=== PATIENT | female | born 1935 | race Caucasian/White ===

== ENCOUNTER → 2024-01-28 14:33 | Outpatient (REF) | payer MEDICARE, OTHER, SELFPAY | LOC: HWRCS 14:33 | PROVIDERS: ATTENDING PHYSICIAN Nuclear Medicine Nuclear Cardiology; FAMILY PHYSICIAN Family Medicine | DX: I50.32 Chronic diastolic (congestive) heart failure (principal); I48.0 Paroxysmal atrial fibrillation | CPT/HCPCS: 93306 ==

== ENCOUNTER 2024-01-30 17:03 | Inpatient (IN) | payer MEDICARE, OTHER, SELFPAY ==
[2024-01-30] VITALS (11 sets, daily range): BP systolic 134–165; BP diastolic 56–89; BMI 25.5; BMI 26.5
[2024-01-30 11:54] LABS: % Basophils 0.3 % (0-2); % Eosinophils 0.1 % (0-6); % Immature Granulocytes 0.7 % (0-0.5); % Lymphocytes 2.1 % (20.5-51.1); % Neutrophils 90.8 % (42.2-75.2); Absolute Immature Granulocytes 0.1 10^3/uL (0-0.05); Absolute Lymphocytes 0.3 10^3/uL (1.2-3.4); Absolute Monocytes 0.8 10^3/uL (0.1-0.6); Absolute Neutrophils 12.4 10^3/uL (1.4-6.5); Hematocrit 37.9 % (37.0-47.0); Hemoglobin 12.6 g/dL (12.0-16.0); Mean Corp Hgb Conc. 33.2 g/dL (33.0-37.0); Mean Corpuscular Hgb 28.2 pg (27.0-31.0); Mean Corpuscular Volume 84.8 fL (81.0-99.0); Mean Platelet Volume 11.6 fL (7.4-10.4); Nucleated Red Blood Cells % 0 %; Platelet Count 180 10^3/uL (130-400); Red Blood Cell Count 4.47 10^6/uL (4.20-5.40); Red Cell Dist. Width 15.2 % (11.5-14.5); White Blood Cell Count 13.6 10^3/uL (4.8-10.8)
[2024-01-30 12:04] LABS: Lactic Acid 1.3 mmol/L (0.7-2.0)
[2024-01-30 12:05] LABS: ALT (SGPT) 22 U/L (0-35); AST (SGOT) 27 U/L (14-36); Albumin 4.1 g/dl (3.5-5.0); Alkaline Phosphatase 138 U/L (38-126); Blood Urea Nitrogen 22 mg/dl (7-17); Calcium 8.9 mg/dl (8.4-10.2); Carbon Dioxide 32 mmol/L (22-30); Chloride 98 mmol/L (98-107); Estimated Creatinine Clearance 46 ml/min; Glucose 140 mg/dl (70-99); Potassium 3.8 mmol/L (3.5-5.1); Sodium 141 mmol/L (135-145); Total Bilirubin 1.7 mg/dl (0.2-1.3); Total Protein 6.6 g/dl (6.3-8.2); eGFR > 60.00
[2024-01-30 12:06] LABS: COVID-19 Antigen Negative (Negative)
--- NOTE | 2024-01-30 12:43 | ED.GENMED ---
History of Present Illness
General
Chief Complaint: Fever
Source: patient
Exam Limitations: none
Time Seen by Provider: 01/30/24 12:41
Nursing documentation reviewed up to this point in time: agreed with
History of Present Illness
History of Present Illness:
88-year-old male with history of chronic back pain, CVA, asthma, A-fib on Coumadin, CHF, HTN, TAVR 08/2017GERD, hiatal hernia, anemia, anxiety/depression presents from [facility] for cough and fever.
She also has a wound on the left lower leg from scratching and she was started on doxycycline 100 mg twice daily last night. She has had a total of 1 dose
She states she had a fever of 103.5 at 930 this morning. She took 2 extra strength Tylenol. She denies chills. She denies N/V/D/C. She denies chest pain or abdominal pain.
Past History
Past History
ED Past Medical History: Arrthythmia, Asthma, GERD, HTN, Hypercholesterolemia, Valvular disease and Other
ED Past Surgical History: Cardiac, Gynecological, Orthopedic and Tonsilectomy
Social History
Tobacco: Non-smoker
Alcohol: None
Drug: None
Personal:
Living: alone
Review of Systems
Review of Systems
Allergies reviewed?: Yes
All Other Systems: ROS reviewed and negative except as documented in HPI and ROS
Constitutional: Reports fever; Denies chills
Respiratory: Reports cough and trouble breathing
Cardiac: Denies chest pain
ABD/GI: Denies abdominal pain, nausea, vomiting, diarrhea or constipated
: Denies dysuria, frequency, difficulty voiding or urgency
Musculoskeletal: Reports edema (left leg swelling)
Skin: Reports other (wounds left lower leg with redness and swelling)
Neurological: Reports no symptoms
Phy Exam
Physical Exam
Physical Exam:
GENERAL: No acute distress. A&Ox3.
CONSTITUTIONAL: Afebrile.
EYES: clear, conjunctivae normal
ENMT: dry mucus membranes, Pharynx nl
RESPIRATORY: Regular respirations, nonlabored, lungs with crackles right base. O2 92% on 2L NC O2
CARDIOVASCULAR: Regular rate and rhythm, no murmurs, no rubs.
GI: Soft, nontender, normal BS
MUSCULOSKELETAL: Moves with ease. Well perfused.
SKIN: Warm, dry, pale. LLE +1 larger than RLE. LLE with wound on dodd and posterior lower leg w surrounding redness, very tender. Distal N/V intact
PSYCH: Normal mood and affect. Well kept, interactive and appropriate
NEUROLOGIC: Awake, alert and oriented. No focal neurological deficits
Course
Orders/Labs/Results
Orders:
Orders
01/30/24 11:32
CXR2 [CR Chest - 2 Views ] Urgent
Comment:
Reason For Exam: cough/fever
01/30/24 11:34
COVID-19 Antigen Urgent
Source: Nasal Swab
Complete Blood Count/With Diff Urgent
Comprehensive Metabolic Panel Urgent
Digoxin Urgent
Comment: ADDON
Lactate Level [Lactic Acid] Urgent
NT-proBNP Urgent
Comment: ADDON SERUM
Influenza A+B Rapid Molecular Urgent
GIANNA Source: Nasal Swab
Specimen Description:
01/30/24 13:28
US Periph Venous LOWER Ext LT Urgent
Comment:
Reason For Exam: swelling, wound, cellulitis
01/30/24 13:39
0.9% Sodium Chloride 500 ml [Nss] 500 ml IV BOLUS
Aztreonam [Azactam] 1,000 mg IV NOW STA
01/30/24 13:55
Vancomycin [Vancocin] 1,500 mg 0.9% Sodium Chloride [Nss] 20 ml 0.9% Sodium Chloride 250 ml [Nss] 250 ml IV NOW
01/30/24 14:16
Blood Culture Q30M
GIANNA Source: Blood/Venous
Specimen Description:
Blood Culture Q30M
GIANNA Source: Blood/Venous
Specimen Description:
01/30/24 Dinner
Cholesterol Lowering
At Your Request: Limited Participation
Fluid Restriction: 1440 mL/day (48 oz)
Cholesterol Lowering: Sodium, 2 Gram
01/30/24 15:56
Acetaminophen [Tylenol] 1,000 mg .ROUTE .STK-MED ONE
01/30/24 15:58
Acetaminophen [Tylenol] 1,000 mg PO NOW STA
01/30/24 16:24
Add On- LAB Urgent
Tests Added?: bnp, digoxin level
01/30/24 16:39
PT/INR [Prothrombin Time] Urgent
01/30/24 16:48
Admit/Transfer Patient As Directed
Co-Sign Provider:
Level of Care: Inpatient admission
Assign to:: Telemetry
Physician / Group: karyna chandler
Diagnosis: hypoxia 2/2 rll pna, left leg celluitis open wounds
Reason for Telemetry: Arrhythmia
Date to Stop Telemetry: 02/02/24
Time to Stop Telemetry: 11:00
Reason for Hospitalization: hypoxia 2/2 rll pna, left leg celluitis open wounds
Expected length of stay greater than two midnights?: Yes
ELOS- Estimated Length of Stay in days: 5
I certify the patient meets the requirements for IP care: Yes
Code Status As Directed
Resuscitation Status: Do not resuscitate
Reached after discussion with pt or family/Healthcare POA: Yes
Based on pt advanced directive or healthcare POA form: Yes
Decision communicated with: per pt
01/30/24 16:49
DNR Bracelet Application ONCE
01/30/24 16:53
PRN Pain Medication Management As Directed
May give lesser potent ordered pain med per pt: Yes
preference::
Protocol:: Medication orders for pain may be administered in a
manner that supports deferring to patient preference
when the pt is:
- Requesting an ordered lesser potent pain medication.
Least to most potent pain medications are defined
as: acetaminophen < NSAID < tramadol < opioids
(morphine, oxycodone, hydromorphone).
- Requesting a lesser dose of the same medication IF
ORDERED.
- Requesting a less intrusive route of administration
if both routes are prescribed by the provider (PO <
IV).
01/30/24 19:48
Acetaminophen [Tylenol] 650 mg PO Q4HPRN PRN
Bisacodyl [Dulcolax] 10 mg RECTAL [id number] PRN
Calcium Carbonate [Oscal Lambert 500] 1,000 mg PO Q4HPRN PRN
Docusate W/Senna [Senokot-S] 1 tablet PO BIDPRN PRN
HydrOXYZINE [Atarax] 25 mg PO TIDPRN PRN
Polyethylene Glycol Powder [Miralax] 17 grams PO DAILYPRN PRN
Trazodone [Desyrel] 25 mg PO Q4HPRN PRN
VANCOMYCIN Pharmacy to Dose [VANCOCIN Pharmacy to Dose] 1 each Pharmacy To Prepare [Call Pharmacy To Prepare] 0 ml IV PER PROTOCOL
01/30/24 19:48
WOUND/OSTOMY CONSULT Routine
Reason for Consult: lle cellulitis /wounds open
VTE Contraindication Routine
VTE Mechanical Device Contraindication: Medical Contraindication
Pharmocologic Contraindication: Medical Contraindication
Comment: pt on coumadin
Activity As Directed
Activity Level: With Assistance
Intake/ Output As Directed
Frequency: Per unit guidelines
Vital Signs As Directed
Frequency: Per unit guidelines
Weight As Directed
Frequency: Daily
Incentive Spirometry [Rx Incentive Spirometry] [RESP] Routine
Frequency: q1h while awake
O2 Therapy [RESP] Routine
Nasal Cannula Liter Flow: 2 LPM
Titrate/Wean O2 to maintain O2 sat greater than (%): 92
Pulse Ox/spot Check [RESP] Routine
Quantity: 1
Ot Eval And Treat Routine
Pt Eval And Treat Routine
Activity Level: With Assistance
01/30/24 20:00
Metoprolol Xl [Toprol Xl] 75 mg PO BID
calcium carbonate 500 mg PO BID
01/30/24 22:00
Atorvastatin [Lipitor] 10 mg PO HS
01/31/24 00:00
Aztreonam [Azactam] 1,000 mg IV Q8H
01/31/24 06:00
Complete Blood Count/With Diff IN AM
Comprehensive Metabolic Panel IN AM
PT/INR [Prothrombin Time] IN AM
01/31/24 08:00
Ferrous Sulfate [Feosol] 325 mg PO DAILY
Lisinopril [Zestril] 5 mg PO DAILY
Pantoprazole [Protonix] 40 mg PO DAILY
Trazodone [Desyrel] 50 mg PO DAILY
digoxin 62.5 mcg PO DAILY
02/01/24 06:00
Complete Blood Count/With Diff IN AM
Comprehensive Metabolic Panel IN AM
PT/INR [Prothrombin Time] IN AM
02/02/24 06:00
Complete Blood Count/With Diff IN AM
Comprehensive Metabolic Panel IN AM
PT/INR [Prothrombin Time] IN AM
02/02/24 11:00
DC Protocol for Telemetry ONCE
02/03/24 06:00
Complete Blood Count/With Diff IN AM
Comprehensive Metabolic Panel IN AM
Abnormal Lab Results
01/30/24 01/30/24
11:34 16:39
WBC 13.6 H 10^3/uL
(4.8-10.8)
RDW 15.2 H %
(11.5-14.5)
MPV 11.6 H fL
(7.4-10.4)
Abs Immat Gran (auto) 0.1 H 10^3/uL
(0-0.05)
Absolute Neuts (auto) 12.4 H 10^3/uL
(1.4-6.5)
Absolute Lymphs (auto) 0.3 L 10^3/uL
(1.2-3.4)
Absolute Monos (auto) 0.8 H 10^3/uL
(0.1-0.6)
Immature Gran % 0.7 H %
(0-0.5)
Neutrophils % 90.8 H %
(42.2-75.2)
Lymphocytes % 2.1 L %
(20.5-51.1)
PT 21.1 H Sec
(11.4-14.6)
Carbon Dioxide 32 H mmol/L
(22-30)
BUN 22 H mg/dl
(7-17)
Glucose 140 H mg/dl
(70-99)
Total Bilirubin 1.7 H mg/dl
(0.2-1.3)
Alkaline Phosphatase 138 H U/L
(38-126)
Digoxin 0.6 L ng/ml
(0.8-2.0)
01/30/24 11:34
01/30/24 11:34
Vital Signs
Initial and Last Documented VS:
Initial Vital Signs
Temp Pulse Resp BP Pulse Ox
98.4 F 104 18 159/87 87
01/30/24 11:23 01/30/24 11:23 01/30/24 11:23 01/30/24 11:23 01/30/24 11:23
Last Documented Vital Signs
Temp Pulse Resp BP Pulse Ox
98.0 F 67 16 134/58 97
01/30/24 20:01 01/30/24 20:01 01/30/24 20:01 01/30/24 20:01 01/30/24 20:01
MDM/Problems Addressed
Differential Diagnosis Includes:
LLE: cellulitis, DVT
PNA, covid, flu
MDM/Problems Addressed:
88-year-old male with history of chronic back pain, CVA, asthma, A-fib on Coumadin, CHF, HTN, presents forTAVR 08/2017GERD, hiatal hernia, anemia, anxiety/depression presents from [facility] for cough and fever.
Afebrile, NAD
Pt uses O2 NC at home at night and PRN.
Pulse ox 92% on 2L
CBC: WBC 13.6
CMP with no clinically significant abnormality
Covid neg
Flu neg
CXR radiology report read: IMPRESSION: Right basilar pneumonia.
Pt also has cellulitis LLE with wounds. She has had Vancomycin and Aztreonam in the past so will use these
3:15 p.m.
US LLE: radiology report read: No DVT
Plan: Admit: Cellulitis LLE, RLL PNA
Hospitalist notified of admission.
*Critical Care Note
Total Time (30-74mins, 75-104mins- exclusive of procedures): Not Applicable
ED Attending Note
-
Portions of this chart may have been created with voice recognition software.� Occasional wrong word or��sound alike� substitutions may have occurred due to the inherent limitations of voice recognition software.
Discharge Plan
Departure
Patient Disposition: Admit
Date of Disposition: 01/30/24
Time of Disposition: 15:23
Presentation/result/management discussed w/ accepting MD/DO: Hospitalist
Condition: Fair
Discharge Problem:
RLL pneumonia, Cellulitis of left lower extremity
Interventions
Interventions:
*Risk Screen - Suicide Last Done: 01/30/24 20:09
*General Assessment Last Done: 01/30/24 11:28
*Neglect/Abuse Screening Last Done: 01/30/24 11:28
ED- Fall Risk Assessment Last Done: 01/30/24 11:26
*ED COVID-19 Vaccine History Last Done: 01/30/24 20:09
*Nursing Disposition Last Done: 01/30/24 19:38
ED- Neurological Assessment Last Done: 01/30/24 11:31
ED-Skin Assessment Last Done: 01/30/24 11:31
Discharge Date and Time
Discharge Date/Time: 01/30/24 19:56
[2024-01-30] MEDS: NSS 500 IV (14:31)
[2024-01-30] MEDS: VANCOCIN 300 MG IV (14:32)
[2024-01-30] MEDS: VANCOCIN 300 ML IV (14:32)
[2024-01-30] MEDS: AZACTAM 1000 MG IV ×2 (14:48→23:36)
[2024-01-30] MEDS: TYLENOL 1000 MG PO (15:58)
--- NOTE | 2024-01-30 16:03 | HPS.HSE ---
Family Physician
-
Family Physician: NOT KNOW UNKNOWN - PT DOES
Chief Complaint
-
Reported fever, shortness with, productive cough
History of Present Illness
88-year-old female from [facility] who states she woke up this morning feeling lousy had a temperature of 103.5 , short of breath and with a productive cough, although today she said it was pink mixed with mucus she denied any clots. She
also reports left lower extremity has been dry and itching she reports scratching her left lower anterior dodd then developed scabs with erythema she also reports had a blister to the posterior left lower leg that she accidentally popped a few days
ago. She reports history of chronic lower extremity edema for which she takes Bumex for occasionally. She also reports she occasionally uses oxygen as she needs it.
Past medical history A-fib on Coumadin, chronic diastolic CHF, chronic peripheral edema, cardiomegaly, PVCs, asthma, GERD, hiatal hernia, HTN, HLD, aortic stenosis/TAVR 09/03/2017, OA, peptic ulcer disease/gastric ulcers,, gastritis, chronic back
pain/lumbar fracture, sciatica, CVA 08/28/2014, chronic migraines, frequent UTIs due to history of uterine prolapse pessary placed 12/24/2017, chronic ambulatory dysfunction uses rollator at baseline
Medical History
Past Medical History
Past Medical History: Reports Other
Additional Past Medical History:
A-fib
Diastolic CHF
Chronic peripheral edema
Cardiomegaly
HTN
HLD
Aortic stenosis s/p TAVR 09/03/2017
PVCs
Asthma
GERD
Peptic ulcer disease/gastric ulcers
Hiatal hernia
OA
Chronic back pain/lumbar fracture
Sciatica
CVA 08/28/2014
Chronic migraines
Frequent UTIs due to history of uterine prolapse pessary placed 12/24/2017
chronic ambulatory dysfunction uses rollator at baseline
Past Surgical History: Reports Other
Additional Past Surgical History:
Arthroscopic surgery left knee
Mastoid surgery
Tonsillectomy adenoidectomy
Tubal ligation
TAVR 09/03/2017
Upper GI with polyps 01/23/2019
Social History
Tobacco: Non-smoker
Alcohol: None
Drug: None
Personal: Single
Living: [facility] Home ([place])
Employment: Retired
Family History
Family History: Not pertinent
Allergies / Home Medications
Allergies reflects when Allergies were last updated in [facility].
Home Medications with original date entered in [facility]
Allergy/Medication List:
Allergies
Allergy/AdvReac Type Severity Reaction Status Date / Time
ciprofloxacin Allergy Unknown Unknown Verified 01/30/24 11:23
Penicillins Allergy Unknown Itching, Verified 01/30/24 11:23
swelling
atenolol Allergy Unknown Verified 01/30/24 11:23
codeine Allergy Nausea,vomi Verified 01/30/24 11:23
ting
sulfamethoxazole Allergy Hives, rash Verified 01/30/24 11:23
[From Septra]
trimethoprim [From Septra] Allergy Hives, rash Verified 01/30/24 11:23
animal dander Allergy Itching Uncoded 01/30/24 11:23
environmental Allergy asthma Uncoded 01/30/24 11:23
solvents and paints Allergy asthma Uncoded 01/30/24 11:23
Home Medications
pantoprazole 40 mg tablet,delayed release 40 mg PO DAILY Gastrointestinal issue 05/20/17
calcium carbonate ([place]yster [place] Calcium 500) 1,000 mg PO Q4HPRN PRN heartburn 02/28/19
acetaminophen 325 mg tablet 650 mg PO Q6HPRN PRN mild pain/ fever>100F 01/30/24
atorvastatin 10 mg tablet 10 mg PO HS 01/30/24
bisacodyl 10 mg rectal suppository (Dulcolax (bisacodyl)) 10 mg NM Q8HPRN PRN no bm after mom 01/30/24
bumetanide 1 mg tablet 1 mg PO DAILY 01/30/24
calcium carbonate 500 mg PO BID 01/30/24
clotrimazole-betamethasone 1 %-0.05 % topical cream 1 applic topical DAILY L arm shouder side back 01/30/24
digoxin 62.5 mcg (0.0625 mg) tablet 62.5 mcg PO DAILY 01/30/24
docusate sodium 100 mg capsule 100 mg PO BIDPRN PRN constipation 01/30/24
doxycycline hyclate 100 mg tablet 100 mg PO BID 01/30/24
ferrous sulfate 325 mg (65 mg iron) tablet 325 mg PO DAILY 01/30/24
hydroxyzine HCl 25 mg tablet 25 mg PO TIDPRN PRN itching 01/30/24
lisinopril 5 mg tablet 5 mg PO DAILY 01/30/24
magnesium hydroxide 400 mg/5 mL oral suspension (Milk of MagnSpringleaf Therapeutics) 400 mg PO [id number] PRN no bm 3 days 01/30/24
metoprolol succinate 25 mg tablet,extended release 24 hr 75 mg PO BID 01/30/24
mineral oil-hydrophil petrolat topical ointment (petrolatum topical ointment) 1 applic topical HS arms,chest,abdomen,groin 01/30/24
mineral oil-hydrophil petrolat topical ointment (petrolatum topical ointment) 1 applic topical SUWE body 01/30/24
trazodone 50 mg tablet 25 mg PO Q4HPRN PRN anxiety 01/30/24
trazodone 50 mg tablet 50 mg PO DAILY 01/30/24
Review of Systems
-
History Source: Patient
A 12 point ROS was completed and negative except as noted: Yes
Constitutional: Reports Fever and Chills
EENT: Denies Sore Throat or Runny Nose
Respiratory: Reports Cough (Productive pink mixed with mucus) and Trouble Breathing
Cardiac: Denies Chest Pain, Diaphoresis, Palpitations or Syncope
Abdomen/GI: Denies Abdominal Pain, Nausea, Vomiting, Diarrhea, Constipated, Bloody Stools or Black Stools
: Denies Dysuria, Frequency, Flank Pain, Incontinence, Difficulty Voiding or Urgency
Musculoskeletal: Reports Edema (Left lower extremity circumferential erythema with scabbed scratches and posterior dried open blister); Denies Joint Pain
Skin: Denies Itching or Rash
Neurological: Denies Dizzy or Headache
Endocrine: Reports No Symptoms
Hematologic/Lymphatic: Reports No Symptoms
Psych: Reports Calm
Physical Exam
Vital Signs
Vital Signs
Temp Pulse Resp BP Pulse Ox
97.7 F 85 14 157/77 96
01/30/24 14:36 01/30/24 15:15 01/30/24 15:15 01/30/24 15:00 01/30/24 15:15
Physical Exam
General: Comfortable, Conversant and Pain (all over body aches); No Fever or Chills
HEENT: NormoCephalic, Anicteric, PERRLA, Neibert Conjunctivae, No Ptosis and Oxygen (2liters nc)
Respiratory: Clear and Rhonchi (rl base); No Wheezes or Rales
Cardiac: S1/S2, Regular Rhythm and Peripheral Edema (+1 bilateral); No Murmur, Rub or Gallop
Breast: Deferred by me
GI: Soft, Non Tender, Non Distended, Normal Bowel Sounds and No Hepatosplenomegaly
Rectal: Deferred by Provider
Genito-urinary: Deferred by me
Musculoskeletal: No Clubbing and No Cyanosis
Skin: Other (Left lower extremity circumferential erythema with scabbed scratches and posterior dried open blister)
Neuro: AO x 3, No Motor Deficits, Cranial Nerves Intact and No Sensory Deficits; No Slurred Speech, Facial Droop or Tremors
Psych: Calm
Laboratory Results
-
01/30/24 11:34
01/30/24 11:34
Laboratory Results
Lactic Acid 1.3 mmol/L (0.7-2.0) 01/30/24 11:34
Total Bilirubin 1.7 mg/dl (0.2-1.3) H 01/30/24 11:34
AST 27 U/L (14-36) 01/30/24 11:34
ALT 22 U/L (0-35) 01/30/24 11:34
Alkaline Phosphatase 138 U/L (38-126) H 01/30/24 11:34
Impression/Plan
-
Impression/plan:
Admit to telemetry
#Sepsis secondary to Right basilar pneumonia
#Acute hypoxic respiratory insufficiency 2/2 right basilar pneumonia
85% RA, 96% 2 L nasal cannula
WBC 13.6 with left shift, 97.7, HR 85, 157/77
COVID-negative, lactic acid 1.3
-Blood culture sent by ER x 2
-IV vancomycin, IV Azactam
-Follow CBC, CMP
CXR: Right basilar pneumonia
#Left lower leg cellulitis secondary to scratching skin and popped blister from acute on chronic bilateral leg edema
Patient started doxycycline 100 mg twice daily yesterday 01/29/2024 will hold further p.o. dose
-IV vancomycin, IV Azactam
-Consult wound care
-PT/OT/case management consult
Peripheral vascular ultrasound: No DVT
# Dyspnea 2/2 worsening severe mitral valve stenosis peak mean gradient 25/12 since 2018
Patient has at home O2 as needed she reports does not typically use it
85% RA, 96% 2 LNC
-outpt follow up [facility] cardiology
2D echo 01/28/2024: EF 65 to 70%, moderate to severe concentric LVH, no wall abnormalities, enlarged RVS.
Worsening severe mitral valve stenosis with peak mean gradients 25/12 mmHg, prior mean gradient 14 mmHg on echo 12/24/2018
Mild to moderate regurg
Well-seated #23 EMBER bioprosthetic aortic valve replacement with peak mean gradients 28/15 mmHg
Moderate TR
Pulm arterial pressure 87-94 mmHg
#A-fib paroxysmal
-Check dig level, INR level
-Continue digoxin 62.5 mcg p.o. daily
#Chronic diastolic CHF
#Chronic peripheral edema
#Cardiomegaly hx
-I/O, daily weights
-Check BNP
-Will hold Bumex 1 mg daily
#HTN-benign
BP 157/77
-cont lisinopril 5 mg daily, metoprolol succinate 75 mg p.o. twice daily with hold parameters
#HLD
-Continue atorvastatin 10 mg at bedtime
#Aortic stenosis s/p TAVR 09/03/2017
-Well-seated #23 EMBER bioprosthetic aortic valve replacement with peak mean gradients 28/15 mmHg on echo 01/28/2024
#PVCs hx
#Asthma-no acute exacerbation
-No inhalers recorded
#GERD
#Peptic ulcer disease/gastric ulcers
#Hiatal hernia
-Continue Protonix 40 mg daily, calcium carbonate 500 mg twice daily
#OA
#Chronic back pain/lumbar fracture
#Sciatica
= Continue Tylenol as needed
#CVA 08/28/2014
-Continue statin
#Anxiety
Continue trazodone 50 mg daily and 25 mg every 4 hours as needed anxiety
#Chronic ambulatory dysfunction uses rollator at baseline
Other PMH:
Chronic migraines
Frequent UTIs due to history of uterine prolapse pessary placed 12/24/2017
DVT prophylaxis
- cont coumadin
DNR
--- NOTE | 2024-01-30 16:21 | W.PN.UPDATE ---
Update Note
Progress Note Update
This note serves as an addendum to the H&P by flower shop manager SARAH BETH Riya CERVANTES
HPI
88F Res of [facility] HX chronic LBP, CVA, asthma, Prx AF ,chr HFpEF, HTN, TAVR 08/2017 , GERD, hiatal hernia, anemia, anxiety/depression pw cough and fever.
Reports wound on the left lower leg from scratching - started on doxycycline 100 mg twice daily last night.
She has had a total of 1 dose.
HX PCN with itching, Hives with Sulfa.
Reports fever of 103.5 at 930 this morning.
She took 2 extra strength Tylenol.
ROS
denies chills.
denies N/V/D/C.
denies chest pain or abdominal pain.
PHX
Atrial fibrillation.
Asthma.
Gastroesophageal reflux disease.
Hypertension.
Hypercholesterolemia.
Aortic stenosis.
Osteoarthritis.
Peptic ulcer disease.
Gastritis.
PAST SURGICAL HISTORY:
Aortic valve replacement.
Gynecological surgery.
Tonsillectomy.
Reviewed VS: Afebrile
PE
Gen: sitting upright wearing O2 , no rsp distress
HEENT:anicteric , [place] -mild
Neck: supple
Lungs: crackles right base
Cor: RRR S1 S2
Abdomen: soft benign
CAMPAIGN DIRECTOR: AAO3
MS: . LLE +1 larger than RLE. LLE with wound on dodd and posterior lower leg w surrounding redness, very tender.
Psych: Nl mood and affect
Data
WCC 13.6
CO2 32 - baseline 33
BUN 22
nl eGFR
TB 1.7
NEG Covid
BCx sent
CXR: Right basilar PNA
US Periph Venous LOWER Ext LT: NEG DVT
01/28/24 ECHO
LV ejection fraction is 65-70% by Ryan's method of discs.
Diastolic function indeterminate.
Enlarged right ventricular size- basal segment measures 4.2 cm and mid segment- 3.4 cm.
Severe mitral valve stenosis with peak/mean gradients across the mitral valve of 25/12 mmHg, respectively. Mild to moderate mitral regurgitation.
Well seated, # 23 Marita bioprosthetic aortic valve replacement with peak/mean gradients across the aortic valve of 28/15 mmHg, respectively.
Trace aortic regurgitation.
Tricuspid valve opens normally with moderate tricuspid regurgitation.
Estimated pulmonary artery pressure of 87-94 mmHg assuming a right atrial pressure of 8- 15 mmHg.
Trivial pericardial effusion without evidence of hemodynamic compromise.
Compared to prior study 03/18/2023 mitral stenosis is severe. No significant change.
Last hospitalist admission: DATE OF ADMISSION: 08/25/2020 - DATE OF DISCHARGE: 08/27/2020
DISCHARGE DIAGNOSIS:
1. GI bleed with gastric ulcer.
2. Subtherapeutic INR.
ASSESSMENT & PLAN
Rt basilar PNA
Presumed sepsis ( Reported T 103.5 at home plus WCC 13.6)
HX PCN and Sulfa allergy
- check PCT
- Empiric Vancomycin and Aztreonam in place of Doxycycline
LLEx cellulitis
- c/w vancomycin
Severe MS with peak/mean gradients across the mitral valve of 25/12 mmHg, respectively.
Mild to moderate mitral regurgitation.
- OP f/u [facility]
HX chronic HFpEF - currently on Digoxin, Bumex, Lisinopril and Metoprolol succinate
- on chr PRN O2
- daily Wt
- check proBNP
- check Dig level
- cont Metoprolol, Bumex, Lisinopril
Essential Hypertension
- on Metoprolol succinate
HX Prx AF on Warfarin
- stat INR - goal is 2-3
- c/w Warfarin
- on Metoprolol
Hyperlipidemia
- on Atorvastatin.
HX TAVR 2018
Asthma. Continue ProAir.
GERD. Continue PPI.
DVT Px:
Code: Full code
IP TLM
[2024-01-30 17:00] LABS: INR 1.84; PT 21.1 Sec (11.4-14.6)
[2024-01-30 17:28] LABS: Digoxin 0.6 ng/ml (0.8-2.0)
--- NOTE | 2024-01-30 17:30 | CM ---
CM reviewed chart. Introduced self and role. Patient lives at [facility]. She has her own private room and bathe. She is currently mobilizing in a wheelchair because of a 'slipped knee'. She shared that she needs assistance if
walking with her Rolater. She is retired. 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 She shared that she does have any familial. She has an estranged daughter that she hasn't been able to talk to in several years. She denies any
+SDOHs. She has an active PCP and pharmacy she uses.
ANTICIPATED DISCHARGE PLAN: [facility] with PT/OT or STR, depending on PT/OT evaluation and when she is medically cleared.
[2024-01-30 17:49] LABS: NT-proBNP 13400 pg/ml
[2024-01-30] MEDS: COUMADIN 2.5 MG PO (17:51)
[2024-01-30] MEDS: COUMADIN 1.5 MG PO (18:40)
--- NOTE | 2024-01-30 20:00 | PTCARENOTE ---
Received patient from ED. She was transferred directly to the bed. She said she had bad knees and can't walk. Patient AAOx3, 2LNC Oxygen, Lungs decreased, crackles in the bases, left lower leg wound noted and scratches on back and right anterior
thigh. Assessment completed. VSS. Patient verbalized an understanding to ring for all transfers. Call martínez demonstrated by patient and in reach.
[2024-01-30] MEDS: TOPROL XL 75 MG PO (21:15)
[2024-01-30] MEDS: LIPITOR 10 MG PO (21:16)
--- NOTE | 2024-01-30 21:31 | PHA.VAN.IN ---
Assessment
- Assessment
Renal Function: Appears similar to baseline
Maximum Temperature: 98.4
Minimum Temperature: 97.7
Concomitant Antimicrobials: AZTREONAM
AUC Dosing Plan
- Dosing Variables
Dosing Weight (kg): 74.48
Dosing CrCl (ml/min): 46
Vd coefficient (L/kg): 0.7
- Empiric Dosing
Initial / Loading Dose: 1500MG
Maintenance Regimen: 1000mg Q24H
Estimated AUC (mcg*h/mL): 460
Estimated Peak (mcg*h/mL): 30
Estimated Trough (mcg/ml): 11.3
Estimated Half Life (H): 16.3
- Monitoring
No levels ordered at this time: Consider levels in next few days
Pharmacokinetics Vancomycin I
- -
Patient Age: 88
Patient Sex: Female
Vancomycin Day #: 1
Indication: Pulmonary/Respiratory
Requesting Provider: Winnie CERVANTES
Pertinent Antimicrobial Allergies:
Penicillins,Ciprofloxacin,Sulfamethoxazole/trimethoprim
Height / Weight:
Height 5 ft 6 in
Actual Weight 74.48 kg
- Vital Signs / Lab Results
Temp Pulse Resp BP Pulse Ox
98.0 F 67 16 134/58 97
01/30/24 20:01 01/30/24 21:15 01/30/24 20:01 01/30/24 21:15 01/30/24 20:01
Lab Results - Hematology
01/30/24
11:34
WBC 13.6 H
Lab Results - Chemistry
01/30/24
11:34
BUN 22 H
Creatinine 0.8
Estimated Creat Clear 46
Albumin 4.1
01/30/24
11:34
Lactic Acid 1.3
Microbiology Results
01/30/24 11:34 Influenza Types A & B (STEFANO) - Final
Nasal Swab Negative for Influenza A & B, NAAT
Negative results must be combined with clinical observations
and patient history.
Nucleic Acid Amplification test (NAAT)performed on the
[employer] platform.
[2024-01-30] MEDS: STERILE WATER FOR INJECTION 10 ML IV (23:36)
[2024-01-30] MEDS: FLUSH (NSS) 2 FLUSH IV (23:39)
[2024-01-31] VITALS (8 sets, daily range): BP systolic 121–143; BP diastolic 46–91; PULSE 75; O2SAT 93; BMI 26.5
[2024-01-31] MEDS: VANCOCIN 200 IV (05:14)
[2024-01-31] MEDS: FLUSH (NSS) 2 FLUSH IV (05:16)
[2024-01-31 05:39] LABS: % Basophils 0.5 % (0-2); % Eosinophils 3.1 % (0-6); % Immature Granulocytes 0.4 % (0-0.5); % Lymphocytes 5.9 % (20.5-51.1); % Monocytes 7.4 % (1.7-9.3); % Neutrophils 82.7 % (42.2-75.2); Absolute Basophils 0.1 10^3/uL (0-0.2); Absolute Eosinophils 0.3 10^3/uL (0-0.7); Absolute Lymphocytes 0.6 10^3/uL (1.2-3.4); Absolute Monocytes 0.7 10^3/uL (0.1-0.6); Absolute Neutrophils 7.6 10^3/uL (1.4-6.5); Hemoglobin 11.5 g/dL (12.0-16.0); Mean Corp Hgb Conc. 32.9 g/dL (33.0-37.0); Mean Corpuscular Volume 85.4 fL (81.0-99.0); Mean Platelet Volume 11.4 fL (7.4-10.4); Nucleated Red Blood Cells % 0 %; Platelet Count 159 10^3/uL (130-400); Red Cell Dist. Width 15.2 % (11.5-14.5); White Blood Cell Count 9.3 10^3/uL (4.8-10.8)
[2024-01-31 05:45] LABS: INR 1.92; PT 21.8 Sec (11.4-14.6)
[2024-01-31 06:06] LABS: ALT (SGPT) 17 U/L (0-35); AST (SGOT) 20 U/L (14-36); Albumin 3.2 g/dl (3.5-5.0); Alkaline Phosphatase 103 U/L (38-126); Blood Urea Nitrogen 25 mg/dl (7-17); Calcium 8.4 mg/dl (8.4-10.2); Carbon Dioxide 34 mmol/L (22-30); Chloride 99 mmol/L (98-107); Estimated Creatinine Clearance 46 ml/min; Glucose 99 mg/dl (70-99); Potassium 3.7 mmol/L (3.5-5.1); Sodium 141 mmol/L (135-145); Total Bilirubin 1.5 mg/dl (0.2-1.3); Total Protein 5.6 g/dl (6.3-8.2); eGFR > 60.00
[2024-01-31 06:13] LABS: Procalcitonin 0.35 ng/ml (0.0-0.25)
[2024-01-31 08:19] LABS: Direct Bilirubin 0.3 mg/dl (0.0-0.4); LDH 224 U/L (120-246)
--- NOTE | 2024-01-31 08:28 | W.PN.HOSP.TC ---
Today's Communication/Plan
-
Switch to Levaquin
Assessment / Plan
Assessment / Plan
88yo F with chronic hypoxic respiratory failur baljinder 2L home O2 as needed, Afib on Coumadin, s/p AVR (Marita), Severe MS (followed by ), HFpEF, REGINA, HTN came after few episodes of hemoptysis on the day before admission, found RLE CAP.
ALso c/o whole body itching for months now, so she scratched her L dodd to the point that it created a blister. Possible minor LLE cellulitis surrounding the blister
A/P:
#RLL CAP with unspecified organism with hemoptysis
Legionella and S.Pneumonia Urinary Ag
Sputum Cx if possible
Levaquin (tolerated it in 2020)
#LLE cellulitits
Abx, wound care
#Chronic itching
no rash on body
possible contact dermatitis vs 2/2 skin dryness
#Chronic hypoxic respiratory failure on 2L home O2 as needed
#Chronic HFpEF
#Severe MS
#Afib on Coumadin
#Subtherapeutic INR
cont home meds
Daily INR - target 2.0-3.0
Recent Echo done - outpatient f/u with maintenance porter - patient verbalized undestanding
Digoxin level 0.6
Patient was skipping her Bumex occasionally at home - counseled on medication compliance
#Mild indirect bilirubinemia
LDH WNL
Most likely [place]
#REGINA
#Essential HTN
cont home meds
DVT ppx - COumadin
DNR/DNI
I have spent at least 57min reviewing chart, test results, communication with consultants and direct patient care
Anticipated Discharge: 24 - 48 hours
Subjective/Interval History
-
Date of Service: January 31, 2024
Objective Data
-
Labs:
Laboratory Results
01/31/24
05:21
WBC 9.3
Hgb 11.5 L
Hct 35.0 L
Plt Count 159
PT 21.8 H
INR 1.92
Sodium 141
Potassium 3.7
Chloride 99
Carbon Dioxide 34 H
BUN 25 H
Creatinine 0.8
Glucose 99
Calcium 8.4
Total Bilirubin 1.5 H
AST 20
ALT 17
Alkaline Phosphatase 103
Vital Signs:
Vital Signs
Temp Pulse Resp BP Pulse Ox
97.9 F 68 18 137/63 94
01/31/24 03:18 01/31/24 03:18 01/31/24 03:18 01/31/24 03:18 01/31/24 03:18
I&O
01/30/24 01/31/24 02/01/24
06:59 06:59 06:59
Intake Total 320 / 320
Output Total 975 / 975
Balance -655 / -655
Review of Systems
-
History Source: Patient
All other systems: Reviewed and negative
Respiratory: Reports Cough and Hemoptysis
Physical Exam
-
General: No Apparent Distress
HEENT: Normocephalic
Respiratory: Clear to Auscultation
Cardiac: Regular Rhythm
GI: Soft, Nontender and Nondistended
Skin: Warm
Neuro: Awake, Alert, Oriented and AO x 3
Psych: Calm
[2024-01-31] MEDS: TOPROL XL 75 MG PO ×2 (08:35→21:25)
[2024-01-31] MEDS: PROTONIX 40 MG PO (08:36)
[2024-01-31] MEDS: OSCAL CAL 500 500 MG PO ×2 (08:36→21:23)
[2024-01-31] MEDS: FEOSOL 325 MG PO (08:36)
[2024-01-31] MEDS: DESYREL 50 MG PO (08:36)
[2024-01-31] MEDS: ZESTRIL 5 MG PO (08:36)
[2024-01-31] MEDS: AZACTAM IV (08:37)
[2024-01-31] MEDS: STERILE WATER FOR INJECTION IV ×3 (08:47→23:04)
[2024-01-31] MEDS: LEVAQUIN 750 MG PO (09:12)
[2024-01-31] MEDS: LANOXIN 62.5 MCG PO (12:57)
[2024-01-31] MEDS: COUMADIN 4 MG PO (21:24)
[2024-01-31] MEDS: LIPITOR 10 MG PO (21:24)
[2024-01-31] MEDS: TYLENOL 650 MG PO (23:28)
[2024-02-01] VITALS (7 sets, daily range): BP systolic 111–156; BP diastolic 43–84; BMI 26.4
[2024-02-01] MEDS: DESYREL 25 MG PO ×2 (01:31→21:12)
--- NOTE | 2024-02-01 04:31 | PTCARENOTE ---
Pt with many episodes of agitation during night, yelling at staff and crying frequently very loudly for reasons like 'the bed is too narrow', 'I don't know why I have so many things wrong with my body', 'I don't have any family, I am lonely'. 1:1
time spent with pt and comfort offered, continued with same behaviors despite prn trazadone at HS given.
[2024-02-01 07:02] LABS: PT 23.4 Sec (11.4-14.6)
[2024-02-01 07:17] LABS: % Basophils 0.6 % (0-2); % Eosinophils 5.3 % (0-6); % Immature Granulocytes 0.4 % (0-0.5); % Lymphocytes 9.6 % (20.5-51.1); % Monocytes 9.6 % (1.7-9.3); % Neutrophils 74.5 % (42.2-75.2); Absolute Eosinophils 0.3 10^3/uL (0-0.7); Absolute Lymphocytes 0.5 10^3/uL (1.2-3.4); Absolute Monocytes 0.5 10^3/uL (0.1-0.6); Absolute Neutrophils 4.1 10^3/uL (1.4-6.5); Hematocrit 34.7 % (37.0-47.0); Hemoglobin 11.3 g/dL (12.0-16.0); Mean Corp Hgb Conc. 32.6 g/dL (33.0-37.0); Mean Corpuscular Hgb 28.3 pg (27.0-31.0); Mean Corpuscular Volume 86.8 fL (81.0-99.0); Mean Platelet Volume 11.3 fL (7.4-10.4); Nucleated Red Blood Cells % 0 %; Platelet Count 140 10^3/uL (130-400); Red Cell Dist. Width 15.1 % (11.5-14.5); White Blood Cell Count 5.4 10^3/uL (4.8-10.8)
[2024-02-01 07:29] LABS: ALT (SGPT) 16 U/L (0-35); AST (SGOT) 19 U/L (14-36); Albumin 3.3 g/dl (3.5-5.0); Alkaline Phosphatase 89 U/L (38-126); Blood Urea Nitrogen 29 mg/dl (7-17); Calcium 8.6 mg/dl (8.4-10.2); Carbon Dioxide 33 mmol/L (22-30); Chloride 101 mmol/L (98-107); Estimated Creatinine Clearance 46 ml/min; Glucose 98 mg/dl (70-99); Sodium 142 mmol/L (135-145); Total Bilirubin 0.9 mg/dl (0.2-1.3); Total Protein 5.7 g/dl (6.3-8.2); eGFR > 60.00
[2024-02-01] MEDS: STERILE WATER FOR INJECTION IV (07:29)
--- NOTE | 2024-02-01 07:56 | W.PN.HOSP.TC ---
Today's Communication/Plan
-
US arterial
Assessment / Plan
Assessment / Plan
88yo F with chronic hypoxic respiratory failur baljinder 2L home O2 as needed, Afib on Coumadin, s/p AVR (Marita), Severe MS (followed by ), HFpEF, REGINA, HTN came after few episodes of hemoptysis on the day before admission, found RLE CAP.
ALso c/o whole body itching for months now, so she scratched her L dodd to the point that it created a blister. Possible minor LLE cellulitis surrounding the blister
A/P:
#RLL CAP with unspecified organism with hemoptysis
Legionella and S.Pneumonia Urinary Ag
Sputum Cx if possible
As per patient - her allergy list is not correct and she had tolerated cephalosporins (Keflex) before. Start Ceftriaxone/Doxy with close monitoring
#LLE cellulitis
Neg for DVT
Abx, wound care
US arterial with JACOBY pending
#Chronic itching
no rash on body
possible contact dermatitis vs 2/2 skin dryness
#Chronic hypoxic respiratory failure on 2L home O2 as needed
#Chronic HFpEF
#Severe MS
#Afib on Coumadin
#Subtherapeutic INR
cont home meds
Daily INR - target 2.0-3.0, patient has weekly adjustment of Warfarin depending on INR that being checked every Thursday
Recent Echo done - outpatient f/u with blender snuff - patient verbalized understanding
Digoxin level 0.6
Patient was skipping her Bumex occasionally at home - counseled on medication compliance
#Mild indirect bilirubinemia
resolved
LDH WNL
Most likely [place]
#REGINA
#Essential HTN
cont home meds
DVT ppx - COumadin
DNR/DNI
I have spent at least 37min reviewing chart, test results, communication with consultants and direct patient care
Anticipated Discharge: Within 24 hours
Subjective/Interval History
-
Date of Service: February 01, 2024
Objective Data
-
Labs:
Laboratory Results
02/01/24
06:25
WBC 5.4
Hgb 11.3 L
Hct 34.7 L
Plt Count 140
PT 23.4 H
INR 2.10
Sodium 142
Potassium 4.0
Chloride 101
Carbon Dioxide 33 H
BUN 29 H
Creatinine 0.8
Glucose 98
Calcium 8.6
Total Bilirubin 0.9
AST 19
ALT 16
Alkaline Phosphatase 89
Vital Signs:
Vital Signs
Temp Pulse Resp BP Pulse Ox
97.5 F 70 18 156/84 96
02/01/24 03:28 02/01/24 03:28 02/01/24 03:28 02/01/24 03:28 02/01/24 03:28
I&O
01/31/24 02/01/24 02/02/24
06:59 06:59 06:59
Intake Total 320 / 320 480 / 480
Output Total 975 / 975
Balance -655 / -655 480 / 480
Review of Systems
-
History Source: Patient
All other systems: Reviewed and negative
Physical Exam
-
General: No Apparent Distress
HEENT: Normocephalic
Respiratory: Clear to Auscultation
Cardiac: Regular Rhythm
GI: Soft
Skin: Ulcers (LLE )
[2024-02-01] MEDS: PROTONIX 40 MG PO (08:16)
[2024-02-01] MEDS: STERILE WATER FOR INJECTION 10 ML IV (08:17)
[2024-02-01] MEDS: ROCEPHIN 1000 MG IV (08:17)
[2024-02-01] MEDS: VIBRAMYCIN 100 MG PO ×2 (08:17→21:00)
[2024-02-01] MEDS: BUMEX 1 MG PO (08:17)
[2024-02-01] MEDS: OSCAL CAL 500 500 MG PO ×2 (08:18→21:00)
[2024-02-01] MEDS: ZESTRIL 5 MG PO (08:18)
[2024-02-01] MEDS: DESYREL 50 MG PO (08:18)
[2024-02-01] MEDS: FEOSOL 325 MG PO (08:18)
[2024-02-01] MEDS: TOPROL XL 75 MG PO ×2 (08:20→21:00)
--- NOTE | 2024-02-01 11:22 | WOUNDNOTE ---
L CALF (POSTERIOR LOWER)
--- NOTE | 2024-02-01 11:22 | WOUNDNOTE ---
R THIGH (ANTERIOR UPPER)
--- NOTE | 2024-02-01 11:22 | WOUNDNOTE ---
LLE (ANTERIOR LATERAL)
--- NOTE | 2024-02-01 11:24 | WOUNDNOTE ---
L ELBOW (BLANCHABLE RED)
--- NOTE | 2024-02-01 11:26 | WOUNDNOTE ---
[facility] RN note: Patient admitted with hypoxia, RLE pneumonia, LLE cellulitis. Patient admitted from SNF from [place].
See H&P for complete history.
PMH: chronic LE edema, a fib (Coumadin), CM, PVC's, asthma, hiatal hernia, HTN, aortic stenosis, TAVR, gastric ulcer, lumbar pain, sciatica, CVA, UTI's, pessary 2018, ambulation dysfunction, uses rollator to ambulate, bilateral knee pain
r/t DJD.
Wound Location and type/assessment: Patient admitted with: scratch blanco on her back, R upper anterior thigh, L finger tips, LLE. L posterior lower calf and L dodd dermal broken blister r/t LLE edema. LLE Venous Doppler negative for DVT. +1 LLE
edema. +Pedal pulses heard via portable Doppler. Arterial Doppler on order.
Appetite: good.
Pressure redistribution devices in place: [employer] Accumax mattress. Patient can turn self slowly in bed. She stated she can ambulate holding onto things.
Plan: Silicone border foam change on L dodd and L posterior calf. Silicone border foam applied to R thigh. Petroleum barrier ointment applied to L shoulder. Instructed patient to apply Vaseline or Aquaphor to dry skin as needed. Heels off bed with
pillow and air chair cushion. Instructed patient pressure injury prevention measures. Suggested she follow up with a inking machine tender about her itchy skin.
Will confirm orders with Dr. Morfin and discussed with BEKAH Vigil.
Care plan to be updated and will follow as needed.
Recommend follow up at wound care center upon discharge.
[2024-02-01] MEDS: LANOXIN 62.5 MCG PO (11:46)
--- NOTE | 2024-02-01 12:33 | CM ---
Reviewed the chart notes. Left voice message for admissions at [facility]. Awaiting call back. CM continues to be available to patient/family and is monitoring medical plan for needs at discharge.
Plan: Discharge hopefully back to [facility]. No precert would be required.
--- NOTE | 2024-02-01 14:37 | PTCARENOTE ---
pt intermittently tearful this shift for this nurse. states just having a rough day. pt refused US of LE this mornign because she was eating breakfast. went for test this afternoon. pt using bedside commode and RW with x1 assist
[2024-02-01] MEDS: HYDROPHOR 1 APPLIC TOPICAL (21:00)
[2024-02-01] MEDS: COUMADIN 4 MG PO (21:05)
[2024-02-01] MEDS: TYLENOL 650 MG PO (21:05)
[2024-02-01] MEDS: LIPITOR 10 MG PO (21:05)
[2024-02-02 03:33] VITALS: BP 131/61
[2024-02-02 05:19] VITALS: BMI 26.1
[2024-02-02] MEDS: PROTONIX 40 MG PO (06:11)
[2024-02-02 07:05] LABS: INR 2.29; PT 25.1 Sec (11.4-14.6)
[2024-02-02 07:21] LABS: % Basophils 0.7 % (0-2); % Eosinophils 5.2 % (0-6); % Immature Granulocytes 0.4 % (0-0.5); % Lymphocytes 10.5 % (20.5-51.1); % Neutrophils 74.2 % (42.2-75.2); Absolute Eosinophils 0.3 10^3/uL (0-0.7); Absolute Lymphocytes 0.6 10^3/uL (1.2-3.4); Absolute Monocytes 0.5 10^3/uL (0.1-0.6); Hematocrit 35.4 % (37.0-47.0); Hemoglobin 11.5 g/dL (12.0-16.0); Mean Corp Hgb Conc. 32.5 g/dL (33.0-37.0); Mean Corpuscular Hgb 28.1 pg (27.0-31.0); Mean Corpuscular Volume 86.6 fL (81.0-99.0); Mean Platelet Volume 11.4 fL (7.4-10.4); Nucleated Red Blood Cells % 0 %; Platelet Count 151 10^3/uL (130-400); Red Blood Cell Count 4.09 10^6/uL (4.20-5.40); White Blood Cell Count 5.3 10^3/uL (4.8-10.8)
[2024-02-02 07:28] LABS: ALT (SGPT) 17 U/L (0-35); AST (SGOT) 18 U/L (14-36); Albumin 3.2 g/dl (3.5-5.0); Alkaline Phosphatase 89 U/L (38-126); Blood Urea Nitrogen 28 mg/dl (7-17); Calcium 8.3 mg/dl (8.4-10.2); Carbon Dioxide 33 mmol/L (22-30); Chloride 99 mmol/L (98-107); Estimated Creatinine Clearance 53 ml/min; Glucose 103 mg/dl (70-99); Potassium 3.9 mmol/L (3.5-5.1); Sodium 142 mmol/L (135-145); Total Bilirubin 0.6 mg/dl (0.2-1.3); Total Protein 5.6 g/dl (6.3-8.2); eGFR > 60.00
[2024-02-02 07:40] VITALS: BP 130/45
--- NOTE | 2024-02-02 08:12 | W.PN.HOSP.TC ---
Today's Communication/Plan
-
dc
Assessment / Plan
Assessment / Plan
88yo F with chronic hypoxic respiratory failur baljinder 2L home O2 as needed, Afib on Coumadin, s/p AVR (Marita), Severe MS (followed by ), HFpEF, REGINA, HTN came after few episodes of hemoptysis on the day before admission, found RLE CAP.
ALso c/o whole body itching for months now, so she scratched her L dodd to the point that it created a blister. Possible minor LLE cellulitis surrounding the blister. Improved to baseline. Afebrile and withut leukocytsis for over 48h before d/c. No
further hemoptysis. INR therapeutic. Medically stable for d/c
A/P:
#RLL CAP with unspecified organism with hemoptysis
Legionella and S.Pneumonia Urinary Ag
Sputum Cx if possible
As per patient - her allergy list is not correct and she had tolerated cephalosporins (Keflex) before. Start Ceftriaxone/Doxy with close monitoring
#LLE cellulitis
Neg for DVT
Abx, wound care
US arterial with JACOBY with signs of ASCVD but no clinically significant occlusion - aggressive risk factor mgmt advised
#Chronic itching
no rash on body
possible contact dermatitis vs 2/2 skin dryness
#Chronic hypoxic respiratory failure on 2L home O2 as needed
#Chronic HFpEF
#Severe MS
#Afib on Coumadin
#Subtherapeutic INR
cont home meds
Daily INR - target 2.0-3.0, patient has weekly adjustment of Warfarin depending on INR that being checked every Thursday
Recent Echo done - outpatient f/u with sound recording technician - patient verbalized understanding
Digoxin level 0.6
Patient was skipping her Bumex occasionally at home - counseled on medication compliance
#Mild indirect bilirubinemia
resolved
LDH WNL
Most likely [place]
#REGINA
#Essential HTN
cont home meds
DVT ppx - Coumadin
DNR/DNI
I have spent at least 37min reviewing chart, test results, communication with consultants and direct patient care
Anticipated Discharge: Today
Subjective/Interval History
-
Date of Service: February 02, 2024
Objective Data
-
Labs:
Laboratory Results
02/02/24
06:32
WBC 5.3
Hgb 11.5 L
Hct 35.4 L
Plt Count 151
PT 25.1 H
INR 2.29
Sodium 142
Potassium 3.9
Chloride 99
Carbon Dioxide 33 H
BUN 28 H
Creatinine 0.7
Glucose 103 H
Calcium 8.3 L
Total Bilirubin 0.6
AST 18
ALT 17
Alkaline Phosphatase 89
Vital Signs:
Vital Signs
Temp Pulse Resp BP Pulse Ox
97.7 F 59 18 131/61 90
02/02/24 03:33 02/02/24 03:33 02/02/24 03:33 02/02/24 03:33 02/02/24 03:33
I&O
02/01/24 02/02/24 02/03/24
06:59 06:59 06:59
Intake Total 480 / 480 900 / 900
Output Total 500 / 500
Balance 480 / 480 400 / 400
Review of Systems
-
History Source: Patient
All other systems: Reviewed and negative
Physical Exam
-
General: No Apparent Distress
HEENT: Normocephalic
Respiratory: Clear to Auscultation
Cardiac: Regular Rhythm
GI: Soft
Genito-urinary: No Costovertebral Tender
Musculoskeletal: No Clubbing, No Cyanosis and No Edema
Neuro: Awake, Alert, Oriented and AO x 3
Psych: Calm
--- NOTE | 2024-02-02 08:18 | W.DCSUMMARY ---
Discharge Summary
Discharge Data
Date of Admission: 01/30/24
Date of Discharge: 02/02/24
-
Pending Results: No
Hospital Course
88yo F with chronic hypoxic respiratory failur baljinder 2L home O2 as needed, Afib on Coumadin, s/p AVR (Marita), Severe MS (followed by ), HFpEF, REGINA, HTN came after few episodes of hemoptysis on the day before admission, found RLE CAP.
ALso c/o whole body itching for months now, so she scratched her L dodd to the point that it created a blister. Possible minor LLE cellulitis surrounding the blister. Improved to baseline. Afebrile and withut leukocytsis for over 48h before d/c. No
further hemoptysis. INR therapeutic. Legionella and S.pneumonia Ag neg. Medically stable for d/c
I have spent at least 37min reviewing chart, test results, communication with consultants and direct patient care
Patient was managed for:
#RLL CAP with unspecified organism with hemoptysis
#LLE cellulitis
#Chronic itching
#Chronic hypoxic respiratory failure on 2L home O2 as needed
#Chronic HFpEF
#Severe MS
#Afib on Coumadin
#Subtherapeutic INR
#Mild indirect bilirubinemia
#REGINA
#Essential HTN
Discharge Plan
-
Patient Disposition: Long Term/SNF
Discharge Diagnosis/Procedures: CAP
Diet: Low Cholesterol
Activity: As tolerated
Bathing Restrictions: OK to Shower
Blood Work: weekly INR
Activity Restrictions/Additional Instructions:
Wound Care Instructions
LLE wounds-clean with saline or Vashe wound cleanser, adaptic, alginate, silicone border foam, change daily and as needed for drainage.
R upper anterior thigh scratch blanco-clean with saline or Vashe wound cleanser, apply silicone border foam, change every 3 days and as needed for loosened dressing.
Aquaphor ointment to dry skin areas twice a day.
Bilateral knee high Tubigrip as tolerated; may remove at bedtime; reapply every morning.
Elevate heels off bed with pillow/s.
Pressure redistributing chair cushion (i.e. Air chair cushion).
Make appointment with a director of healthcare systems.
Follow up at wound care center call for an appointment.
Referrals:
Ray Núñez MD [Family Provider] -
Prescriptions:
New
doxycycline hyclate 100 mg Capsule
100 mg PO Q12 Qty: 8 0RF
cefuroxime axetil 500 mg tablet
500 mg PO BID Qty: 8 0RF
Continued
pantoprazole 40 MG tablet,delayed release (DR/EC)
40 mg PO DAILY
calcium carbonate [Oyster Shell Calcium 500] 500 MG tablet
1,000 mg PO Q4HPRN PRN (Reason: heartburn)
trazodone 50 mg Tablet
25 mg PO Q4HPRN PRN (Reason: anxiety)
trazodone 50 mg Tablet
50 mg PO DAILY
petrolatum Ointment
1 applic TOPICAL SUWE
petrolatum Ointment
1 applic TOPICAL HS
magnesium hydroxide [Milk of Magnesia] 400 mg/5 mL Suspension
400 mg PO [id number] PRN (Reason: no bm 3 days)
bisacodyl [Dulcolax (bisacodyl)] 10 mg Suppository
10 mg ID Q8HPRN PRN (Reason: no bm after mom)
ferrous sulfate 325 mg (65 mg iron) Tablet
325 mg PO DAILY
clotrimazole-betamethasone 1-0.05 % Cream
1 applic TOPICAL DAILY
docusate sodium 100 mg Capsule
100 mg PO BIDPRN PRN (Reason: constipation)
bumetanide 1 mg Tablet
1 mg PO DAILY
hydroxyzine HCl 25 mg Tablet
25 mg PO TIDPRN PRN (Reason: itching)
calcium carbonate 500 mg calcium (1,250 mg) Tablet,Chewable
500 mg PO BID
lisinopril 5 mg Tablet
5 mg PO DAILY
metoprolol succinate 25 mg Tablet Extended Release 24 Hr
75 mg PO BID
digoxin 62.5 mcg (0.0625 mg) Tablet
62.5 mcg PO DAILY
acetaminophen 325 MG tablet
650 mg PO Q6HPRN MDD 3000 mg PRN (Reason: mild pain/ fever>100F)
atorvastatin 10 MG tablet
10 mg PO HS
warfarin 4 mg Tablet
4 mg PO HS
Discontinued
doxycycline hyclate 100 mg Tablet
100 mg PO BID
Patient Comments:
01/30/24: take for 7 days, from 01/29/24-02/05/24.
Discharge Orders:
Discharge Patient (As Directed); Ordered 02/02/24
Ordered By: Americo Morfin
Discharge Date and Time
Print Language: SAMI
[2024-02-02] MEDS: HYDROPHOR 1 APPLIC TOPICAL (08:53)
[2024-02-02] MEDS: ZESTRIL 5 MG PO (08:54)
[2024-02-02] MEDS: STERILE WATER FOR INJECTION 10 ML IV (08:54)
[2024-02-02] MEDS: DESYREL 50 MG PO (08:54)
[2024-02-02] MEDS: VIBRAMYCIN 100 MG PO (08:54)
[2024-02-02] MEDS: FEOSOL 325 MG PO (08:54)
[2024-02-02] MEDS: OSCAL CAL 500 500 MG PO (08:54)
[2024-02-02] MEDS: TOPROL XL 75 MG PO (08:54)
[2024-02-02] MEDS: ROCEPHIN 1000 MG IV (08:55)
--- NOTE | 2024-02-02 09:16 | CM ---
Patient for return to SNF today. Please call report to [phone]/fax [phone]. CM spoke with Raymond at SNF and confirmed patient ability to accept. CM spoke with Patient completed IMM and signed form placed on chart. CM will continue to
follow for discharge planning needs.
Plan; return to SNF; [facility]
--- NOTE | 2024-02-02 10:06 | PN.CDI ---
Addendum entered and electronically signed by Americo Morfin MD 02/02/24 10:43:
At this point seems to be chronic failure
Original Note:
CDI
- -
CDI:
Physician Documentation Request
Admit Date: 01/30/24 17:03
Dear Doctor Navjot,
Progress notes include 'Chronic hypoxic respiratory failure on 2L home O2 as needed'
Please clarify the patients respiratory status:
Chronic hypoxic respiratory failure continuous home O2 use
Hypoxia requiring intermittent home O2 use
Other
Use of terms such as suspected, likely, concern for, or probable (associated with a specific diagnosis that is being evaluated, monitored, or treated as if it exists) are acceptable and can be coded in the inpatient setting, when documented at the
time of discharge.
Thank you,
Cher Chambers RN, BSN
CDI Specialist
tiger text
Please use your independent medical judgment in providing your response.
[2024-02-02 11:10] VITALS: BP 158/72
[2024-02-02] MEDS: BUMEX PO (12:11)
[2024-02-02] MEDS: LANOXIN PO (13:15)
[2024-02-02 23:03] LABS: Haptoglobin 81 mg/dL (30-200)
== END 2024-02-02 13:22 | DRG 602 ==
LOC: 2 NORTH 17:03
PROVIDERS: Clinical Nurse Specialist Family Health; ADMITTING PHYSICIAN Internal Medicine; ATTENDING PHYSICIAN Internal Medicine; EMERGENCY PHYSICIAN Emergency Medicine; FAMILY PHYSICIAN Internal Medicine Geriatric Medicine
DX: L03.116 Cellulitis of left lower limb (principal); J18.9 Pneumonia, unspecified organism; K25.4 Chronic or unspecified gastric ulcer with hemorrhage; I50.32 Chronic diastolic (congestive) heart failure; J96.11 Chronic respiratory failure with hypoxia; Z66 Do not resuscitate; R79.1 Abnormal coagulation profile; Z79.01 Long term (current) use of anticoagulants; I11.0 Hypertensive heart disease with heart failure; Z99.81 Dependence on supplemental oxygen; I48.0 Paroxysmal atrial fibrillation
CPT/HCPCS: 71046; 80053; 80162; 82248; 83010; 83605; 83615; 83880; 84145; 85025; 85610; 87040; 87070; 87147; 87449; 87502; 87811; 87899; 93306; 93922; 93925; 93971; 96365; 96375; 97162; 97166; 99285